=== PATIENT | male | born 1945 | race Caucasian/White ===

== ENCOUNTER 2017-06-06 08:15 | Emergency (ER) | payer MEDICARE, OTHER ==
[2017-06-06 09:12] LABS: Hematocrit 38.2 % (42.0-52.0); Hemoglobin 13.3 gm/dL (13.5-18.0); Mean Cell Volume 88.4 fl (78-100); Mean Corpuscular Hemoglobin 30.8 pg (27-31); Mean Corpuscular Hgb Conc 34.8 g/dl (32-36); Mean Platelet Volume 9.9 fl (6.0-9.5); Neutrophil # 8.5 K/mm3 (1.3-6.0); Neutrophil % 79.5 % (42-75.0); Platelet Count 159 K/mm3 (150-450); Red Blood Count 4.32 M/mm3 (4.7-6.0); Red Cell Distribution Width 13.6 % (11.5-14.0); White Blood Count 10.7 K/mm3 (4.0-10.5)
--- NOTE | 2017-06-06 09:12 | ERNOTE ---
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 Seen by Provider: 06/06/17 08:46 Source: patient, family Exam Limitations: no limitations - Immun/Allergies/Home Medications Immunizations: IMMUNIZATION HX History of Influenza Vaccine Yes Allergies/Adverse Reactions: Allergies Allergy/AdvReac Type Severity Reaction Status Date / Time No Known Allergies Allergy Verified 06/06/17 08:23 Home Medications: HOME MEDICATIONS Aspirin [Aspirin Enteric Coated] 81 mg PO DAILY 01/31/13 [Last Taken Unknown] Cyanocobalamin/Folic Acid [Vitamin F24-Wxxqu Acid Tablet] 2 each PO DAILY [Last Taken Unknown] Enalapril Maleate [Vasotec] 20 mg PO DAILY 01/31/13 [Last Taken Unknown] Metoprolol Succinate [Toprol Xl] 100 mg PO DAILY 01/31/13 [Last Taken Unknown] Omeprazole [Prilosec] 40 mg PO DAILY 01/31/13 [Last Taken Unknown] Simvastatin [Zocor] 20 mg PO HS 01/31/13 [Last Taken Unknown] Furosemide [Lasix] 40 mg PO DAILY #20 tablet 06/06/17 [Last Taken Unknown] Potassium Chloride 10 meq PO BID #20 tab.er.prt 06/06/17 [Last Taken Unknown] - History of Present Illness Narrative: 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 Occurred: last week Location of Incident: home Method of Injury: Reports: no apparent injury Reason for Fall: Reports: other - no repported fall Modifying Factors - (Improves): Reports: rest Modifying Factors - (Worsens): Reports: movement Associated Symptoms: Reports: weakness Other Injuries: Reports: none Review of Systems - Narrative Narrative: unremarkable - Review of Systems Constitutional: Present: See HPI, weakness, fatigue, malaise EYE: Present: no symptoms reported ENT: Present: no symptoms reported Respiratory: Present: shortness of breath, orthopnea Cardiology: Present: no symptoms reported Gastrointestinal/Abdominal: Present: no symptoms reported Genitourinary: Present: decreased urinary output Musculoskeletal: Present: muscle pain, muscle stiffness Neurological: Present: no symptoms reported Endocrine: Present: no symptoms reported Hematologic/Lymphatic: Present: no symptoms reported Psych: Present: no symptoms reported All Other Systems: All systems neg except as marked - Narrative Narrative: unremarkable - Patient's Past Medical History Patient History - Medical: Diabetes Type 2 Patient History - Cardiac/Respiratory: Hypertension, Hyperlipidemia Patient History - Cancer: No Hx of Cancer Patient History - Surgical Procedures: Noncontributory Patient History - Other: None - Family History Family History:: no untoward family reactions to anesthesia, no familial bleeding tendencies, no family history of clotting disorders, no family history of premature - Social History Living Situations: spouse Abuse History: No History of abuse Psych History: No pertinent hx Does anyone smoke in the home?: No Smoking Status: Former smoker Have you smoked in the past 12 months: No Do you dip or chew tobacco: No Patient requests Smoking Cessation Consult: No Initiate information on Smoking Cessation: No Alcohol Use: none Drug Use: none - Immunizations Immunizations Up to Date: Yes Hx Pneumococcal Vaccination: Yes History of Influenza Vaccine: Yes Physical Exam - Physical Exam Narrative: patient appears in mild distress General Appearance: Present: mild distress, anxious Head Exam: Present: normal inspection, no evidence of injury Eye Exam: Normal inspection: bilateral, PERRL: bilateral, EOMI: bilateral Ears, Nose, Throat: Present: normal ENT inspection Neck: Present: normal inspection, nontender Respiratory: Present: decreased breath sounds, crackles, rales, rhonchi Cardiovascular/Chest: Present: regular rate, rhythm, no murmur, normal peripheral pulses Peripheral Pulses: N=norm/S=strong/W=weak/B=bound/A=absent: Carotid (R): Normal , Carotid (L): Normal, Radial (R): Normal, Radial (L): Normal, Femoral (R): Normal, Femoral (L): Normal, Dorsalis-pedis (R): Normal, Dorsalis-pedis (L): Normal Gastrointestinal/Abdominal: Present: normal bowel sounds, nontender, nondistended, soft, no organomegaly Back Exam: Present: normal inspection, normal range of motion, no CVA tenderness , no vertebral tenderness Extremity Exam: Present: extremity edema Neurological Exam: Present: alert, oriented, normal mood/affect, no motor/ sensory deficits DTR: N=norm/NB=norm/brisk/A=abs/DD=dull/dimin/HC=hyperactive: Bicep (R): Normal , Bicep (L): Normal, Tricep (R): Normal, Tricep (L): Normal, Knee (R): Normal, Knee (L): Normal, Ankle (R): Normal, Ankle (L): Normal Skin Exam: Present: normal color, warm/dry Lymphatic Exam: Present: no adenopathy ED Progress - Date and Time Seen: Date and Time: 06/06/17 11:20 condition unchanged, discussed labs and x-rays with patient to be dismissed f/u with dr adamson in no improvement - Results and Orders Patient's Lab Results:: I have reviewed the patient's lab results. - Vital Signs Patient's Vital Signs:: I have reviewed the patient's vital signs. Vital Signs: Vital Signs 06/06/17 06/06/17 08:18 08:59 Temperature 36.7 C Pulse Rate 134 H 126 H Respiratory 12 12 Rate Blood Pressure 136/84 146/81 O2 Sat by Pulse 99 97 Oximetry - EKG EKG: NSR EKG read: Interp. by me - X-Ray X-Ray #1 X-Ray: chest Interpretation: Interp. by me - no acute process - Progress/Reassessment Chief Complaint: Lower Extremity Pain/ Injury Progress:: Unchanged - Transfer of Care Expected Disposition: Discharge Plan - Plan Plan: to be discharged Departure Clinical Impression: Edema extremities - Departure Disposition: Home self-care Condition: Fair Instructions: Peripheral Edema Referrals: Kristopher Adamson DO [Primary Care Provider] - Prescriptions: Furosemide [Lasix] 40 mg PO DAILY #20 tablet Potassium Chloride 10 meq PO BID #20 tab.er.prt
[2017-06-06 09:28] LABS: Albumin * 4.1 gm/dl (3.4-5.0); BUN/Creatinine Ratio 23.5 (9.0-21.6); Bilirubin, Total 1.1 mg/dL (0.0-1.1); Ca. Corrected For Albumin 8.3 mg/dL (8.4-10.2); Calcium * 8.7 mg/dL (7.9-10.9); Carbon Dioxide 22.6 mmol/L (24-32.6); Potassium 4.6 mmol/L (3.4-4.6); Total Protein 7.7 gm/dL (6.2-8.2); Troponin I 0.03 ng/ml (0.00-0.10)
[2017-06-06 10:56] LABS: Urine Bilirubin 1 mg/dl (NEGATIVE); Urine Blood Negative /ul (NEGATIVE); Urine Ketone 5 mg/dL (NEGATIVE); Urine Nitrite Negative (NEGATIVE); Urine Protein 15 mg/dL (NEGATIVE); Urine Specific Gravity >=1.030 SP.GR. (1.005-1.030); Urine Urobilinogen Normal (NORMAL); Urine pH 5.5 pH (5.0-7.0)
[2017-06-06 11:08] LABS: Urine Appearance Slightly Cloudy; Urine Bacteria TRACE; Urine Color Dark Yellow; Urine RBC None Seen /hpf (0-5); Urine WBC None Seen /hpf (0-5)
[2017-06-06 11:09] LABS: Urine Amorphous Sediment Few - 1+ (NONE-FEW)
[2017-06-06 11:29] VITALS: BP 144/86
== END 2017-06-06 11:32 | disposition home or self-care (01) ==
LOC: ER 08:15
DX: R60.0 Localized edema (principal); E11.9 Type 2 diabetes mellitus without complications; I10 Essential (primary) hypertension; E78.5 Hyperlipidemia, unspecified; R68.89 Other general symptoms and signs; Z87.891 Personal history of nicotine dependence